=== PATIENT | female | born 1990 | race American Indian/Alaskan Native ===

== ENCOUNTER 2019-12-24 00:10 | Emergency (ER) | payer SELFPAY ==
--- NOTE | 2019-12-24 01:08 | XRay Report ---
CHEST 1 VIEW INDICATION / CLINICAL INFORMATION: Chest Pain. COMPARISON: None available. FINDINGS: SUPPORT DEVICES: None. HEART / MEDIASTINUM: No significant abnormality. LUNGS / PLEURA: No significant pulmonary or pleural abnormality.. No pneumothorax. ADDITIONAL FINDINGS: No significant additional findings. IMPRESSION: 1. No acute findings. Signer Name: Fuentes Orellana MD Signed: 12/24/2019 1:04 AM Workstation Name: [id number]
[2019-12-24] MEDS ORDERED: ALUM-MAG HYDROXIDE-SIMETHICONE 200-200-20MG/5ML ORAL LIQD 30 ML PO ONE (01:55)
[2019-12-24] MEDS ORDERED: IBUPROFEN 800 MG TAB PO ONE (01:55)
[2019-12-24] MEDS ORDERED: LIDOCAINE VISCOUS 2% 15 ML ORAL LIQD PO ONE (01:55)
[2019-12-24 02:14] VITALS: BP 109/64
[2019-12-24 03:04] LABS: Bacteria,Urine 1+ /HPF (Negative); Bilirubin,Urine NEG (Negative); Blood,Urine SM (Negative); Color,Urine Yellow (Yellow); Mucus,Urine FEW /HPF; Protein,Urine <15 mg/dL mg/dL (Negative)
--- NOTE | 2019-12-24 03:06 | Emergency Department Report ---
ED General Adult HPI - General Chief complaint: Dyspnea/Respdistress Stated complaint: BRY CHEST PAIN Time Seen by Provider: 12/24/19 01:54 Source: patient Mode of arrival: Ambulatory Limitations: No Limitations - History of Present Illness Initial comments: Mr. Ross is 29-year-old female who presents tonight for epigastric pain 2 days. Pain described as sharp pressure burning patient exacerbated by deep inspiration. pain is relieved nothing. Patient denies shortness of breath, there is no wheezing ,no cough ,no fever, no chills, no sore,throat, no ear pain. Onset/Timin -: days(s) Location: chest (epigastric ) Radiation: back Severity scale (0 -10): 3 Quality: burning, sharp Consistency: intermittent Improves with: none Worsens with: movement, other (deep inspiration) Associated Symptoms: chest pain (epitgastric pain ). denies: cough, diaphoresis, fever/chills, headaches, malaise, nausea/vomiting Treatments Prior to Arrival: none - Related Data Previous Rx's Medication Instructions Recorded Last Taken Type Nitrofurantoin Divide/M-Cryst 100 mg PO BID 7 Days #14 capsule 12/24/19 Unknown Rx [Macrobid CAP] RX: Naproxen 500 mg PO BID PRN #30 tablet 12/24/19 Unknown Rx Allergies Allergy/AdvReac Type Severity Reaction Status Date / Time No Known Allergies Allergy Verified 12/24/19 00:24 ED Review of Systems ROS: Stated complaint: BRY CHEST PAIN Other details as noted in HPI Constitutional: denies: chills, fever Eyes: denies: eye pain, eye discharge, vision change ENT: denies: ear pain, throat pain Respiratory: denies: cough, shortness of breath, wheezing Cardiovascular: chest pain (chest wall pain /epigastric pain with inspiration ). denies: palpitations Endocrine: no symptoms reported Gastrointestinal: denies: abdominal pain, nausea, vomiting, diarrhea Genitourinary: denies: urgency, dysuria, discharge Musculoskeletal: denies: back pain, joint swelling, arthralgia Skin: denies: rash, lesions Neurological: denies: headache, weakness, paresthesias Psychiatric: denies: anxiety, depression Hematological/Lymphatic: denies: easy bleeding, easy bruising ED Past Medical Hx - Past Medical History Previous Medical History?: No - Surgical History Past Surgical History?: No - Social History Smoking Status: Never Smoker Substance Use Type: Alcohol - Medications Home Medications: Home Medications Medication Instructions Recorded Confirmed Last Taken Type Nitrofurantoin Divide/M-Cryst 100 mg PO BID 7 Days #14 capsule 12/24/19 Unknown Rx [Macrobid CAP] RX: Naproxen 500 mg PO BID PRN #30 tablet 12/24/19 Unknown Rx ED Physical Exam - General Limitations: No Limitations General appearance: alert, in no apparent distress - Head Head exam: Present: atraumatic, normocephalic - Eye Eye exam: Present: normal appearance, PERRL, EOMI Pupils: Present: normal accommodation - ENT ENT exam: Present: mucous membranes moist - Neck Neck exam: Present: normal inspection, full ROM. Absent: tenderness, meningismus, lymphadenopathy, thyromegaly - Respiratory Respiratory exam: Present: normal lung sounds bilaterally, chest wall tenderness (epigastric ). Absent: respiratory distress, wheezes, rales, rhonchi, stridor - Cardiovascular Cardiovascular Exam: Present: regular rate, normal rhythm, normal heart sounds. Absent: systolic murmur, diastolic murmur, rubs, gallop - GI/Abdominal GI/Abdominal exam: Present: soft, normal bowel sounds. Absent: distended, tenderness, guarding, rebound, rigid, bruit, hernia - Rectal Rectal exam: Present: deferred - Extremities Exam Extremities exam: Present: normal inspection, full ROM, normal capillary refill. Absent: tenderness - Back Exam Back exam: Present: normal inspection, full ROM. Absent: tenderness, CVA tenderness (R), CVA tenderness (L), vertebral tenderness, rash noted - Neurological Exam Neurological exam: Present: alert, oriented X3, CN II-XII intact, normal gait, reflexes normal. Absent: motor sensory deficit - Psychiatric Psychiatric exam: Present: normal affect, normal mood - Skin Skin exam: Present: warm, dry, intact, normal color. Absent: rash ED Course Vital Signs 12/24/19 12/24/19 00:15 01:15 Temperature 99.6 F Pulse Rate 78 68 Respiratory 18 18 Rate Blood Pressure 120/79 Blood Pressure 109/64 [Right] O2 Sat by Pulse 99 100 Oximetry ED Medical Decision Making - Lab Data Labs 12/24/19 Unknown Urine Color Yellow Urine Turbidity Slightly-cloudy Urine pH 6.0 Ur Specific [place] 1.017 Urine Protein <15 mg/dl Urine Glucose (UA) Neg Urine Ketones Neg Urine Blood Sm Urine Nitrite Neg Urine Bilirubin Neg Urine Urobilinogen 2.0 Ur Leukocyte Esterase Sm Urine WBC (Auto) 11.0 H Urine RBC (Auto) 2.0 U Epithel Cells (Auto) 3.0 Urine Bacteria (Auto) 1+ Urine Mucus Few Urine HCG, Qual Negative - Radiology Data Radiology results: report reviewed, image reviewed Ordering Physician: CACHORRO BOLIVAR MD Date of Service: 12/24/19 Procedure(s): XR chest 1V ap Accession Number(s): [id number] cc: ED MD KATT Fluoro Time In Minutes: CHEST 1 VIEW INDICATION / CLINICAL INFORMATION: Chest Pain. COMPARISON: None available. FINDINGS: SUPPORT DEVICES: None. HEART / MEDIASTINUM: No significant abnormality. LUNGS / PLEURA: No significant pulmonary or pleural abnormality.. No pneumothorax. ADDITIONAL FINDINGS: No significant additional findings. IMPRESSION: 1. No acute findings. Signer Name: Fuentes Orellana MD Signed: 12/24/2019 1:04 AM Workstation Name: [id number] Transcribed By: SS Dictated By: Fuentes Orellana MD Electronically Authenticated By: Fuentes Orellana MD Signed Date/Time: 12/24/19103 DD/ 2 - Medical Decision Making this is a UTI , ua: pos for leuk, wbc, pain is improve with medication given in ed plan ibuprofen, pepcid, follow up with pcp in 2-3 days return to emergency if symptoms worsen, pt verbalized agreement and understanding of discharge plan. Critical care attestation.: If time is entered above; I have spent that time in minutes in the direct care of this critically ill patient, excluding procedure time. ED Disposition Clinical Impression: UTI (urinary tract infection) Qualifiers: Urinary tract infection type: acute cystitis Hematuria presence: without hematuria Qualified Code(s): N30.00 - Acute cystitis without hematuria Disposition: TO HOME OR SELFCARE Is pt being admited?: No Does the pt Need Aspirin: No Condition: Stable Instructions: Urinary Tract Infection in Women (ED) Prescriptions: Nitrofurantoin Divide/M-Cryst [Macrobid CAP] 100 mg PO BID 7 Days #14 capsule RX: Naproxen 500 mg PO BID PRN #30 tablet PRN Reason: pain Referrals: DANIELA CASTILLO MD [Staff Physician] - 3-5 Days Forms: Work/School Release Form(ED) Time of Disposition: 03:25
[2019-12-24 03:20] LABS: HCG Qualitative,Urine Negative (Negative)
== END 2019-12-24 03:30 | disposition home or self-care (01) ==
LOC: ED 00:10
DX: N39.0 Urinary tract infection, site not specified (principal); R10.13 Epigastric pain; R06.00 Dyspnea, unspecified; R07.9 Chest pain, unspecified; F10.10 Alcohol abuse, uncomplicated; Z79.899 Other long term (current) drug therapy
CPT/HCPCS: 71045; 81001; 81025; 87086; 93005; 93010